=== PATIENT | male | born 1950 | race Caucasian/White ===

== ENCOUNTER 2018-04-17 09:56 | Emergency (ER) | payer MEDICARE ==
[2018-04-17 10:21] VITALS: BP 140/75
--- NOTE | 2018-04-17 10:39 | UC ---
Skin Complaint HPI - HPI Summary HPI Summary: Patient has a large area of redness on the anterior aspect of the right courtney. He doesnt remember any significant injury, is a velazquez, there is a few small scabs in the center of the area. afebrile - History of Current Complaint Chief Complaint: UCLowerExtremity Time Seen by Provider: 04/17/18 10:30 Stated Complaint: RIGHT LEG SKIN COMPLAINT Hx Obtained From: Patient Onset/Duration: Sudden Onset, Lasting Days Skin Exposure Onset/Duration: Days Ago Timing: Constant Onset Severity: Mild Current Severity: Moderate Pain Intensity: 6 Location: Other - right leg Character: Swelling, Redness, Raised, Painful - Allergy/Home Medications Allergies/Adverse Reactions: Allergies Allergy/AdvReac Type Severity Reaction Status Date / Time Sulfa (Sulfonamide Allergy Rash Verified 04/17/18 10:14 Antibiotics) Home Medications: Home Medications Metoprolol Succinate XL TAB* [Toprol XL TAB*] 100 mg PO DAILY 04/17/18 [History Confirmed 04/17/18] Terazosin CAP* [Hytrin CAP*] 10 mg PO BEDTIME 04/17/18 [History Confirmed ] Review of Systems Constitutional: Negative Skin: Other - redness, small scabs ENT: Negative Respiratory: Negative Cardiovascular: Negative Gastrointestinal: Negative Genitourinary: Negative Motor: Negative Neurovascular: Negative Musculoskeletal: Myalgia Neurological: Negative Psychological: Negative Is Patient Immunocompromised?: No All Other Systems Reviewed And Are Negative: Yes PMH/Surg Hx/FS Hx/Imm Hx Previously Healthy: Yes - Surgical History Surgical History: Yes Surgery Procedure, Year, and Place: knee replacement. finger surgery - Family History Known Family History: Positive: Hypertension - Social History Alcohol Use: Occasionally Substance Use Type: None Smoking Status (MU): Never Smoked Tobacco Physical Exam Triage Information Reviewed: Yes Appearance: Well-Appearing, Well-Nourished, Pain Distress Vital Signs: Initial Vital Signs Temp 98.1 F 04/17/18 10:15 Pulse 55 04/17/18 10:15 Resp 16 04/17/18 10:15 BP 140/75 04/17/18 10:15 Pulse Ox 100 04/17/18 10:15 Vital Signs Reviewed: Yes Eye Exam: Normal ENT Exam: Normal Dental Exam: Normal Neck exam: Normal Neck: Positive: Supple, Nontender, No Lymphadenopathy Respiratory Exam: Normal Respiratory: Positive: Chest non-tender, Lungs clear, Normal breath sounds Cardiovascular Exam: Normal Cardiovascular: Positive: RRR, No Murmur, Pulses Normal Abdominal Exam: Normal Abdomen Description: Positive: Nontender, No Organomegaly, Soft Bowel Sounds: Positive: Present Musculoskeletal Exam: Normal Musculoskeletal: Positive: Strength Intact, ROM Intact, Edema @ - of the lower leg noted Neurological Exam: Normal Psychological Exam: Normal Skin: Positive: significant lesion(s) - large area of erythema on courtney, multiple small scabs in the affected area. Course/Dx - Course Course Of Treatment: hx obtained, exam performed ,meds reviewed, treated for cellulitis - Differential Diagnoses - Skin Complaint Differential Diagnoses: Cellulitis, Contact Dermatitis, Local Allergic Reaction , Lymphadenitis, Poison [place], Poison [place] - Diagnoses Provider Diagnoses: cellulitis of the right lower leg Discharge - Sign-Out/Discharge Documenting (check all that apply): Discharge/Admit/Transfer - Discharge Plan Condition: Stable Disposition: HOME Prescriptions: DOXYcycline CAP(*) [DOXYcycline 100MG CAP(*)] 100 mg PO BID #14 cap Patient Education Materials: Cellulitis (ED) Referrals: Brad Jones MD [Primary Care Provider] - Additional Instructions: 1. take the medication as prescribed. remember to keep out of the sun do not take with milk products 2. Elevated the leg as much as possible for the next 48 hours. 3. Monitor the redness. if it continues to spread, you develop a fever or increase pain in the calf, follow up in the ER. - Billing Disposition and Condition Condition: STABLE Disposition: HOME
== END 2018-04-17 10:47 | disposition home or self-care (01) ==
LOC: UCCORT 09:56
DX: L03.115 Cellulitis of right lower limb (principal); Z88.2 Allergy status to sulfonamides; Z96.659 Presence of unspecified artificial knee joint; Z82.49 Family history of ischemic heart disease and other diseases of the circulatory system
CPT/HCPCS: 99202; G0463